=== PATIENT | male | born 1980 | race Two or more races ===

== ENCOUNTER 2018-08-06 00:23 | Inpatient (IN) | payer OTHER ==
[~2018-08-06] VITALS: Ht 182.9 cm; Wt 168.7 kg
[2018-08-06] MEDS ORDERED: ONDANSETRON 4 MG/2 ML VIAL IV ONE (00:30)
[2018-08-06] MEDS ORDERED: IV NORMAL SALINE 1000 ML BAG IV ONE (00:30)
--- NOTE | 2018-08-06 00:36 | NUR ---
Pt ambulated to ER with c/o high blood sugar of 295 that he took at home around 2244. Pt states he gave himself 20 units of regular insulin 3 hrs ago & 45 units of Lantus prior to arrival. Pt also c/o nausea & vomiting (6 episodes emesis) that started at 1999 yesterday. Denies diarrhea/constipation. Denies fever/chills/cough. Denies chest pain/sob. Pt placed on environmental monitoring technician showing NSR. SA02 100% room air.
[2018-08-06] MEDS ORDERED: ONDANSETRON 4 MG/2 ML VIAL ONE (00:46)
[2018-08-06 00:53] LABS: BASOPHILS % (AUTO) 0.2 % (0.0-2.0); HEMATOCRIT 51.8 % (36.7-47.1); HEMOGLOBIN 17.9 g/dL (12.5-16.3); LYMPHOCYTES # (AUTO) 1.2 K/uL (20.0-40.0); LYMPHOCYTES % (AUTO) 12.8 % (20.5-51.5); MEAN CORPUSCULAR HEMOGLOBIN 29.5 uug (23.8-33.4); MEAN CORPUSCULAR HGB CONC 35 g/dL (32.5-36.3); MEAN CORPUSCULAR VOLUME 85.6 fL (73.0-96.2); MONOCYTES # (AUTO) 0.9 K/uL (2.0-10.0); MONOCYTES % (AUTO) 9.5 % (0.0-11.0); NEUTROPHILS # (AUTO) 7.5 K/uL (1.8-8.9); NEUTROPHILS % (AUTO) 77.5 % (38.5-71.5); PLATELET COUNT (AUTO) 267 K/uL (152-348); RED BLOOD CELL COUNT(AUTO) 6.05 MIL/uL (4.06-5.63); WHITE BLOOD COUNT (AUTO) 9.7 K/uL (3.6-10.2)
[2018-08-06 00:56] LABS: CREATININE 1.6 mg/dL (0.6-1.3); POTASSIUM 4.3 mmol/L (3.5-5.1)
[2018-08-06] MEDS ORDERED: LANTUS SUBCUT (01:00)
[2018-08-06] MEDS ORDERED: INSULIN ASPART SUBCUT (01:00)
[2018-08-06] MEDS ORDERED: METOCLOPRAMIDE HCL 10 MG/2 ML VIAL IV ONE (01:00)
[2018-08-06] MEDS ORDERED: METOCLOPRAMIDE HCL 10 MG/2 ML VIAL ONE (01:01)
[2018-08-06 01:10] LABS: BILIRUBIN,DIRECT 0.1 mg/dL (0.0-0.2); BILIRUBIN,TOTAL 0.7 mg/dL (0.2-1.0); TOTAL PROTEIN, SERUM 9.3 g/dL (6.4-8.2)
--- NOTE | 2018-08-06 01:15 | NUR ---
Pt ambulated to restroom, collected urine sample, sent to lab.
[2018-08-06 01:20] LABS: *BLOOD, URINE 2+ (NEGATIVE); *CLARITY,URINE SLIGHTLY CLOUDY (CLEAR); *COLOR,URINE YELLOW (YELLOW); *KETONES,URINE 4+ (NEGATIVE); *UROBILINOGEN,URINE 0.2 E.U./dl (NORMAL); LEUKOCYTE ESTERASE ,URINE NEGATIVE (NEGATIVE); NITRITE, URINE NEGATIVE (NEGATIVE); PH,URINE 5.5 (5.0-8.0)
--- NOTE | 2018-08-06 01:27 | NUR ---
Dr. Vishal JEAN MD speaking to Donny Campuzano NP on telephone.
[2018-08-06] MEDS ORDERED: MORPHINE SULFATE 2 MG/1 ML DISP.SYRIN IV PRN (01:30)
[2018-08-06] MEDS ORDERED: INSULIN REGULAR, HUMAN 300 UNITS/3 ML VIAL SQ PRN (01:30)
[2018-08-06] MEDS ORDERED: ONDANSETRON 4 MG/2 ML VIAL IV PRN (01:30)
[2018-08-06] MEDS ORDERED: HYDROCODONE/APAP 5-325MG TABLET PO PRN (01:30)
[2018-08-06] MEDS ORDERED: ACETAMINOPHEN 325 MG TABLET PO PRN (01:30)
[2018-08-06] MEDS ORDERED: DEXTROSE 50% 50 ML DISP.SYRIN IV PRN (01:30)
[2018-08-06] MEDS ORDERED: INSULIN REGULAR, HUMAN 300 UNIT/3 ML VIAL SQ PRN (01:30)
[2018-08-06] MEDS ORDERED: MAGNESIUM HYDROXIDE 30 ML LIQUID UDC PO PRN (01:30)
[2018-08-06 01:33] LABS: *BILIRUBIN,URIN 2+ (NEGATIVE); UGLUCOSE 2+ (NEGATIVE)
--- NOTE | 2018-08-06 01:38 | NUR ---
Pt. admitted to Telemetry, under care of Donny Campuzano NP. Diagnosis: Uncontrolled Diabetes Belongs List completed. Reoprt given to floor nurse.
[2018-08-06 01:44] LABS: BACTERIA,URINE NONE SEEN /HPF (NONE SEEN); SQUAMOUS EPITHELIAL CELL,UR FEW /HPF (NONE SEEN); WBC,URINE 0-3 /HPF (0-3)
[2018-08-06 01:45] LABS: MUCUS,URINE FEW /LPF (0-FEW); URINE AMORPHOUS URATE FEW /HPF
--- NOTE | 2018-08-06 02:04 | NUR ---
NOTIFIED BEBA IN PHARMACY THAT NEW ORDER RECEIVED FOR PATIENTS INSULIN SLIDING SCALE TO BE CHANGED TO AGGRESSIVE. UNABLE TO MANUALLY ENTER. PATIENT USES OWN INSULIN. PER BEBA, CALL PHARMACY IN AM TO CHANGE TO AGGRESSIVE IN AM. ALL NEEDS ATTENDED.
[2018-08-06 02:46] VITALS: BP 141/93
[2018-08-06 03:38] LABS: MAGNESIUM 1.7 mg/dL (1.8-2.4); PHOSPHOROUS 2.6 mg/dL (2.5-4.9)
--- NOTE | 2018-08-06 04:00 | NUR ---
Bolus of normal saline completed. Patient tolerated well. Will continue to monitor
[2018-08-06 04:04] LABS: THYROID STIMULATING HORMONE 2.144 mIU/mL (0.358-3.740)
[2018-08-06] MEDS: IV NS 1000 ML 1,000 ML IV PRN ×2 (04:35→15:57)
[2018-08-06 06:00] VITALS: BP 128/82
[2018-08-06] MEDS ORDERED: MORPHINE SULFATE 4 MG/1 ML DISP.SYRIN IV PRN (07:15)
[2018-08-06] MEDS: PANTOPRAZOLE SODIUM 40 MG TABLET.DR PO SCH (07:18)
--- NOTE | 2018-08-06 07:50 | NUR ---
PATIENT RECEIVED RESTING IN BED, ALERT AND ORIENTED, ABLE TO MAKE NEEDS KNOWN, DENIES ANY DISTRESS, NO N/V, NO PAIN CALL LIGHT WITHIN REACH SIDE RAILS UP X2, LOW POSITION, CONTINUE TO MONITOR
[2018-08-06] MEDS: BLOOD SUGAR DIAGNOSTIC 1 EACH STRIP VI SCH ×4 (09:41→20:33)
[2018-08-06] MEDS: HEPARIN SODIUM,PORCINE 5,000 UNITS/ML VIAL SQ SCH ×2 (09:44→20:34)
[2018-08-06 11:45] VITALS: BP 143/88
[2018-08-06] MEDS ORDERED: [UNRECOGNIZED DRUG - OTHER] SQ PRN (12:00)
[2018-08-06] MEDS ORDERED: INSULIN ASPART SQ PRN (12:00)
[2018-08-06] MEDS: INSULIN ASPART SQ PRN ×2 (12:11→17:00)
[2018-08-06] MEDS: [UNRECOGNIZED DRUG - OTHER] SQ PRN ×2 (12:11→17:00)
[2018-08-06] MEDS ORDERED: MAGNESIUM SULFATE/D5W 100 ML IV SCH (12:15)
[2018-08-06 16:10] VITALS: BP 139/79
[2018-08-06 16:20] VITALS: BP 123/80
[2018-08-06 20:00] VITALS: BP 133/88
--- NOTE | 2018-08-06 20:00 | NUR ---
RECEIVED PATIENT AWAKE IN BED. A/O X4. PATIENT IS CONCERNED ABOUT THE SLIDING SCALE. PATIENT IS CURRENTLY RECEIVING MODERATE S/S, BUT STATED HE BASES HIS UNITS OF INSULIN BASED ON THE CARBS EATEN. NOTIFIED DR. CENTENO THAT PATIENT IS REQUESTING TO BE ON AN "AGGRESSIVE" SLIDING SCALE. RECEIVED ORDER TO CHANGE TO AC-HS WITH AGGRESSIVE SLIDING SCALE WITH PATIENTS OWN INSULIN. WILL CONTINUE TO MONITOR.
--- NOTE | 2018-08-06 20:45 | NUR ---
NOTIFIED DR. CENTENO THAT PATIENTS HEART RATE IS IN THE LOW 100'S. NO NEW ORDERS. ALL NEEDS ATTENDED.
[2018-08-06] MEDS ORDERED: INSULIN GLARGINE,HUM 300 UNITS/3 ML CARTRIDGE SQ SCH (21:00)
[2018-08-07] MEDS: IV NS 1000 ML 1,000 ML IV PRN (01:22)
[2018-08-07 05:08] VITALS: BP 136/87
[2018-08-07] MEDS: PANTOPRAZOLE SODIUM 40 MG TABLET.DR PO SCH (06:30)
[2018-08-07] MEDS: BLOOD SUGAR DIAGNOSTIC 1 EACH STRIP VI SCH ×2 (06:31→12:06)
--- NOTE | 2018-08-07 06:35 | NUR ---
PATIENT ASLEEP IN BED. EASILY AROUSABLE. DENIES PAIN. VSS. IVF INFUSING WELL. CALL LIGHT IN REACH. ALL NEEDS ATTENDED. WILL CONTINUE TO MONITOR AND ASSESS.
[2018-08-07 06:49] LABS: BASOPHILS % (AUTO) 0.6 % (0.0-2.0); EOSINOPHILS # (AUTO) 0.1 K/uL (0.0-0.7); HEMOGLOBIN 13.7 g/dL (12.5-16.3); LYMPHOCYTES # (AUTO) 2.3 K/uL (20.0-40.0); LYMPHOCYTES % (AUTO) 38.4 % (20.5-51.5); MEAN CORPUSCULAR HEMOGLOBIN 28.3 uug (23.8-33.4); MEAN CORPUSCULAR HGB CONC 34 g/dL (32.5-36.3); MEAN CORPUSCULAR VOLUME 84.6 fL (73.0-96.2); MONOCYTES # (AUTO) 0.6 K/uL (2.0-10.0); MONOCYTES % (AUTO) 9.5 % (0.0-11.0); NEUTROPHILS % (AUTO) 50.5 % (38.5-71.5); PLATELET COUNT (AUTO) 184 K/uL (152-348); RED BLOOD CELL COUNT(AUTO) 4.85 MIL/uL (4.06-5.63); WHITE BLOOD COUNT (AUTO) 5.9 K/uL (3.6-10.2)
[2018-08-07 07:00] LABS: BILIRUBIN,TOTAL 0.6 mg/dL (0.2-1.0); MAGNESIUM 1.8 mg/dL (1.8-2.4); POTASSIUM 3.7 mmol/L (3.5-5.1); TOTAL PROTEIN, SERUM 6.4 g/dL (6.4-8.2)
[2018-08-07] MEDS ORDERED: PATIENT MAY USE OWN MED- MD OK SQ SCH (07:30)
[2018-08-07] MEDS ORDERED: INSULIN ASPART SQ PRN (07:45)
[2018-08-07] MEDS ORDERED: [UNRECOGNIZED DRUG - OTHER] SQ PRN (07:45)
[2018-08-07] MEDS: HEPARIN SODIUM,PORCINE 5,000 UNITS/ML VIAL SQ SCH (08:17)
[2018-08-07] MEDS: [UNRECOGNIZED DRUG - OTHER] SQ PRN ×2 (08:19→12:19)
[2018-08-07] MEDS: INSULIN ASPART SQ PRN ×2 (08:19→12:19)
[2018-08-07 11:20] VITALS: BP 129/87
[2018-08-07] MEDS ORDERED: PANT40TA2 PO (12:12)
--- NOTE | 2018-08-07 13:45 | NUR ---
PATIENT DISCHARGE TO HOME VIA UBER, PROVIDED WITH DISCHARGE INSTRUCTION : FOLLOW UP WITH PCP WITHIN 2 WKS, FOLLOW UP WITH ASSESSMENT CLINICIAN WITHIN [address] ESCOTO FOR ENDOSCOPY WITHIN 2 WEEKS . PATIENT VERBALIZED UNDERSTANDING AND QUESTION AND CONCERNS ADDRESSED. PATIENT SEEN BY ANA , THE PHARMACIST, ABOUT THE NEW MEDICATION THAT WAS PRESCRIBED. BELONGINGS ACCOUNTED FOR AND MEDICATIONS RETURNED. ID BAND AND IV REMOVED.
== END 2018-08-07 13:45 | disposition home or self-care (01) | DRG 377 ==
LOC: ER 00:26 → TELE 01:54 → MED 10:15
PROVIDERS: ADMIT Nurse Practitioner Acute Care; ATTEND Internal Medicine
DX: K92.2 Gastrointestinal hemorrhage, unspecified (principal); N17.0 Acute kidney failure with tubular necrosis; Z68.43 Body mass index [BMI] 50.0-59.9, adult; E87.1 Hypo-osmolality and hyponatremia; E10.65 Type 1 diabetes mellitus with hyperglycemia; Z79.4 Long term (current) use of insulin; E66.01 Morbid (severe) obesity due to excess calories; E78.5 Hyperlipidemia, unspecified; E83.42 Hypomagnesemia; E87.6 Hypokalemia; D75.1 Secondary polycythemia; E86.0 Dehydration
CPT/HCPCS: 36415; 70030-TC; 71045; 83605; 83690; 83735; 84100; 84443; 85025; 85730; 87086; 87400; 93005; A4663; G0378; J1644; J1815; J2405; J2765; J3475; J7030